=== PATIENT | female | born 1980 | race Caucasian/White ===

== ENCOUNTER 2018-07-05 09:04 | Outpatient (CLI) | payer OTHER ==
--- NOTE | 2018-07-05 10:23 | RAD ---
RIGHT HIP 2 VIEWS: HISTORY: Right hip pain. FINDINGS/IMPRESSION: No fracture, dislocation, or other significant osseous abnormality. POS: [facility]
--- NOTE | 2018-07-05 11:25 | MRI ---
MRI CERVICAL SPINE WITHOUT CONTRAST: Multiplanar, multisequential imaging of cervical spine obtained. INDICATION: Cervical radiculopathy. FINDINGS: Prior anterior fusion procedure. Anterior plate and screws transfix C4, C5, C6, and C7 levels with i nterbody implants and interbody fusion. Artifact from this device is present degrading the study. Vertebral body signal appears normal with no edema. No significant abnormality at C2-3 or C3-4 levels. At C4-5, interbody fusion. Minimal posterior spondylosis is present; however, the anterior subarachn oid space is preserved. At C5-6, mild spondylosis. The anterior subarachnoid space is generous, and there is no foraminal st enosis. At C6-7, posterior spondylosis is slightly more prominent, mildly flattening the thecal sac. However , the anterior subarachnoid space is preserved and there is no central canal or foraminal stenosis. At C7-T1, no significant abnormality. The cord signal is normal. IMPRESSION: Anterior fusion changes seen from C4 through C7. There is no central canal or foraminal stenosis nahed ntified. POS: [facility]
== END 2018-07-05 09:05 | disposition home or self-care (01) ==
LOC: TBSIIMAG 09:04
PROVIDERS: ATTEND Nurse Practitioner Family
DX: M25.551 Pain in right hip (principal); M54.12 Radiculopathy, cervical region; Z98.1 Arthrodesis status
CPT/HCPCS: 72141